=== PATIENT | female | born 1985 | race Caucasian/White ===

== ENCOUNTER 2018-01-08 21:02 | Inpatient (IN) | payer OTHER ==
[~2018-01-08] VITALS: Ht 170.2 cm; Wt 150.0 kg
[2018-01-08 21:05] VITALS: O2SAT 100
[2018-01-08] MEDS ORDERED: CLINDAMYCIN 600 MG/NS PREMIX 50 ML IV ONE (21:11)
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
[2018-01-08 21:37] LABS: AUTOMATED NEUTROPHIL # 9.5 TH/MM3 (1.8-7.7); BASOPHIL # 0.1 TH/MM3 (0-0.2); BASOPHIL % 0.9 % (0.0-2.0); EOSINOPHIL # 0.1 TH/MM3 (0-0.4); HEMATOCRIT 42.6 % (35.0-46.0); HEMOGLOBIN 13.8 GM/DL (11.6-15.3); LYMPH % 32.7 % (9.0-44.0); MEAN CELL VOLUME 80.1 FL (80.0-100.0); MEAN CORPUSCULAR HGB CONC 32.5 % (32.0-36.0); MEAN PLATELET VOLUME 7.4 FL (7.0-11.0); MONO % 3.7 % (0.0-8.0); MONOCYTE # 0.6 TH/MM3 (0-0.9); NEUT % 61.7 % (16.0-70.0); PLATELET COUNT 424 TH/MM3 (150-450); RED BLOOD COUNT 5.32 MIL/MM3 (4.00-5.30); WHITE BLOOD COUNT 15.3 TH/MM3 (4.0-11.0)
[2018-01-08] MEDS ORDERED: ceFAZolin 2 GM/NS PREMIX 100 ML IV STA (21:38)
[2018-01-08] MEDS ORDERED: DIPHTH/TETANUS/ACEL PERTUSSIS (BOOSTER) 0.5 ML VIAL/PFS IM ONE (21:38)
[2018-01-08] MEDS ORDERED: SODIUM CHLOR 0.9% 1000 ML INJ 1,000 ML IV SCH (21:45)
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
[2018-01-08] MEDS ORDERED: IOHEXOL 350 MG/ML 10 ML VIAL (for RAD DIAG) IVCONTRAST ONE (21:51)
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
[2018-01-08 21:56] LABS: PROTHROMBIN TIME - PATIENT 10.6 SEC (9.8-11.6)
[2018-01-08] MEDS ORDERED: LIDOCAINE 1%/EPINEPHrine 1:100,000 SOLN 20 ML VIAL INFIL ONE (22:00)
[2018-01-08] MEDS ORDERED: LIDOCAINE 1%/EPINEPHrine 1:100,000 SOLN 50 ML VIAL INFIL ONE (22:00)
[2018-01-08] MEDS ORDERED: MORPHINE SULFATE 4 MG/ML INJ IV PUSH ONE (22:00)
[2018-01-08] MEDS ORDERED: ONDANSETRON ODT 4 MG TAB PO ONE (22:00)
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
[2018-01-08 22:12] VITALS: BP 133/64; PULSE 94; RESP 18; O2SAT 99
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
[2018-01-08] MEDS ORDERED: SODIUM CHLORIDE 0.9% FLUSH 10 ML FLUSH IV FLUSH PRN (22:45)
[2018-01-08] MEDS ORDERED: HYDROmorphone HCL PF 1 MG/ML VIAL IVP PRN (22:45)
[2018-01-08] MEDS ORDERED: ONDANSETRON HCL 4 MG/2 ML VIAL IV PUSH PRN (22:45)
[2018-01-08] MEDS ORDERED: ACETAMINOPHEN/HYDROcodone 325 MG/5 MG TAB PO PRN ×2 (22:45)
[2018-01-08] MEDS ORDERED: ENALAPRILAT 1.25 MG/ML VIAL IV PUSH PRN (22:45)
--- NOTE | 2018-01-08 22:49 | PD ---
Data Data Last Documented VS Vital Signs Date Time Temp Pulse Resp B/P (MAP) Pulse Ox O2 Delivery O2 Flow Rate FiO2 01/08/18 22:15 99 Nasal Cannula 2.00 01/08/18 22:12 94 18 133/64 (87) Orders Orders I-Stat Profile (01/08/18 21:06) Complete Blood Count With Diff (01/08/18 21:06) Prothrombin Time / Inr (Pt) (01/08/18 21:06) Act Partial Throm Time (Ptt) (01/08/18 21:06) Type And Screen (01/08/18 21:06) Fibrinogen (01/08/18 21:06) Beta Hcg (Quant/Titer) (01/08/18 21:06) Red Blood Cells (Rbc) (01/08/18 21:06) Urinalysis - C+S If Indicated (01/08/18 21:06) Drug Screen, Random Urine (01/08/18 21:06) Chest, Single Ap (01/08/18 21:06) Pelvis, Ap Only (Routine) (01/08/18 21:06) Ct Brain W/O Iv Contrast(Rout) (01/08/18 21:06) Ct Cerv Spine W/O Contrast (01/08/18 21:06) Ct Abd/Pel W Iv Contrast(Rout) (01/08/18 21:06) Ct Thorax/ Chest W Iv Contrast (01/08/18 21:06) Ct Facial Bones W/O Iv Cont (01/08/18 21:06) Arterial Blood Gas (Abg) (01/08/18 21:06) Iv Access Insert/Monitor (01/08/18 21:06) Ecg Monitoring (01/08/18 21:06) Oximetry (01/08/18 21:06) Oxygen Administration (01/08/18 21:06) Elbow, Limited (Ap&Lat) (01/08/18 ) Ed Poc Ultrasound (01/08/18 ) Clindamycin 600 Mg/Ns Premix (Cleocin 60 (01/08/18 21:11) Ct Thor Spine W Iv Contrast (01/08/18 ) Ct Lumb Spine W Iv Contrast (01/08/18 ) Cefazolin 2 Gm Premix (Ancef 2 Gm Premix (01/08/18 21:38) Evfi-Tsg-Ayiclr (Booster) Inj (Boostrix (01/08/18 21:38) Sodium Chlor 0.9% 1000 Ml Inj (Ns 1000 M (01/08/18 21:45) Lidocai-Epi 1%-1:100,000 Inj (Xylocaine- (01/08/18 22:00) Lidocai-Epi 1%-1:100,000 Inj (Xylocaine- (01/08/18 22:00) Iohexol 350 Inj (Omnipaque 350 Inj) (01/08/18 21:51) Morphine Inj (Morphine Inj) (01/08/18 22:00) Ondansetron Odt (Zofran Odt) (01/08/18 22:00) Knee, Complete (4vws) (01/08/18 22:11) Admit Order (Ed Use Only) (01/08/18 22:27) Labs Laboratory Tests Test 01/08/18 21:15 White Blood Count 15.3 TH/MM3 Red Blood Count 5.32 MIL/MM3 Hemoglobin 13.8 GM/DL Bedside Hemoglobin 13.9 G/DL Hematocrit 42.6 % Bedside Hematocrit 41.0 % Mean Corpuscular Volume 80.1 FL Mean Corpuscular Hemoglobin 26.0 PG Mean Corpuscular Hemoglobin Concent 32.5 % Red Cell Distribution Width 15.0 % Platelet Count 424 TH/MM3 Mean Platelet Volume 7.4 FL Neutrophils (%) (Auto) 61.7 % Lymphocytes (%) (Auto) 32.7 % Monocytes (%) (Auto) 3.7 % Eosinophils (%) (Auto) 1.0 % Basophils (%) (Auto) 0.9 % Neutrophils # (Auto) 9.5 TH/MM3 Lymphocytes # (Auto) 5.0 TH/MM3 Monocytes # (Auto) 0.6 TH/MM3 Eosinophils # (Auto) 0.1 TH/MM3 Basophils # (Auto) 0.1 TH/MM3 CBC Comment DIFF FINAL Differential Comment Prothrombin Time 10.6 SEC Prothromb Time International Ratio 1.0 RATIO Activated Partial Thromboplast Time 21.8 SEC Fibrinogen 261 mg/dL Bedside Sodium 141 MMOL/L Bedside Potassium 3.6 MMOL/L Bedside Chloride 106 MMOL/L Bedside Blood Urea Nitrogen 10 MG/DL Bedside Creatinine 0.5 MG/DL Bedside Glucose 296 MG/DL Human Chorionic Gonadotropin, Quant LESS THAN 1 MIU/ML MDM Medical Record Reviewed: Yes Supervised Visit with ALMAZ: No Procedures Procedure Narrative LACERATION LOCATION: Right elbow LENGTH: 3-4 cm tissue avulsion NUMBER OF STITCHES/ARCELIA: 7 REPAIR: The area of the laceration was prepped with Betadine and sterilely draped. The laceration was infiltrated with 1% lidocaine with epinephrine. The wound was copiously irrigated and explored without evidence of foreign body , tendon injury or neurovascular injury. The wound was closed using 4-0 Prolene simple interrupted. This was a single layer repair. A sterile dressing was applied. The patient was advised to keep the dressing clean and dry. Patient tolerated the procedure well. LACERATION LOCATION: Right lateral ankle LENGTH: 3-4 cm NUMBER OF STITCHES/ARCELIA:6 REPAIR: The area of the laceration was prepped with Betadine and sterilely draped. The laceration was infiltrated with 1% lidocaine with epinephrine. The wound was copiously irrigated and explored without evidence of foreign body , tendon injury or neurovascular injury. The wound was closed using 4-0 Prolene simple interrupted. This was a single layer repair. A sterile dressing was applied. The patient was advised to keep the dressing clean and dry. Patient tolerated the procedure well. Shiv Guzman January 08, 2018 22:49
[2018-01-08 22:54] VITALS: BP 115/64; PULSE 96; RESP 18; O2SAT 98
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
[2018-01-08] MEDS: SODIUM CHLOR 0.9% 1000 ML INJ 1,000 ML IV SCH (23:54)
[2018-01-08] MEDS: PANTOPRAZOLE SODIUM 40 MG VIAL IVP SCH (23:54)
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
[2018-01-09] MEDS ORDERED: ACETAMINOPHEN 325 MG TAB PO PRN (04:00)
[2018-01-09 04:52] VITALS: BP 112/66; PULSE 103; RESP 20; TEMP 98.3; O2SAT 98
[2018-01-09] MEDS: SODIUM CHLOR 0.9% 1000 ML INJ 1,000 ML IV SCH ×3 (05:40→18:04)
[2018-01-09 05:55] LABS: AUTOMATED NEUTROPHIL # 7.1 TH/MM3 (1.8-7.7); BASOPHIL % 0.2 % (0.0-2.0); HEMATOCRIT 41.1 % (35.0-46.0); HEMOGLOBIN 13.5 GM/DL (11.6-15.3); LYMPHOCYTE # 0.5 TH/MM3 (1.0-4.8); MEAN CELL VOLUME 80.1 FL (80.0-100.0); MEAN CORPUSCULAR HEMOGLOBIN 26.4 PG (27.0-34.0); MEAN PLATELET VOLUME 7.7 FL (7.0-11.0); MONO % 8.3 % (0.0-8.0); MONOCYTE # 0.7 TH/MM3 (0-0.9); NEUT % 85.5 % (16.0-70.0); PLATELET COUNT 270 TH/MM3 (150-450); RED BLOOD COUNT 5.12 MIL/MM3 (4.00-5.30); WHITE BLOOD COUNT 8.4 TH/MM3 (4.0-11.0)
[2018-01-09 06:34] LABS: ALBUMIN 3.3 GM/DL (3.4-5.0); ALT (GPT) 832 U/L (10-53); AST (GOT) 871 U/L (15-37); BICARBONATE 22.7 MEQ/L (21.0-32.0); BLOOD UREA NITROGEN 10 MG/DL (7-18); CALCIUM 8.3 MG/DL (8.5-10.1); CHLORIDE 105 MEQ/L (98-107); CREATININE 0.83 MG/DL (0.50-1.00); GLOMERULAR FILTRATION RATE 59 ML/MIN (>89); GLUCOSE,RANDOM 336 MG/DL (74-106); SODIUM (NA) 139 MEQ/L (136-145)
[2018-01-09 06:36] LABS: ALKALINE PHOSPHATASE 79 U/L (45-117); TOTAL BILIRUBIN ADULT 0.5 MG/DL (0.2-1.0); TOTAL PROTEIN 7.1 GM/DL (6.4-8.2)
[2018-01-09 08:04] VITALS: BP 119/65; PULSE 107; RESP 17; TEMP 99; O2SAT 93
[2018-01-09] MEDS: DOCUSATE SODIUM 50 MG/SENNA 8.6 MG TAB PO SCH ×2 (08:44→20:42)
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
[2018-01-09] MEDS ORDERED: HYDROmorphone HCL PF 2 MG/ML VIAL IV PUSH PRN (10:45)
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
[2018-01-09] MEDS: ACETAMINOPHEN 1000 MG/100 ML 100 ML IV PRN (12:51)
[2018-01-09] MEDS: BACITRACIN TOP OINT 15 GM TUBE TOPICAL SCH ×2 (14:00→20:44)
[2018-01-09] MEDS ORDERED: GLUCAGON 1 MG/ML VIAL OTHER PRN (14:15)
[2018-01-09] MEDS ORDERED: DEXTROSE 50% IN WATER 50 ML VIAL(D50) IV PUSH PRN (14:15)
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
[2018-01-09 16:16] VITALS: BP 138/69; PULSE 91; RESP 18; TEMP 99.5; O2SAT 93
[2018-01-09] MEDS: INSULIN ASPART SUPPLEMENTAL SCALE SQ SCH ×2 (17:25→20:43)
[2018-01-09 20:00] VITALS: BP 151/71; PULSE 91; RESP 18; TEMP 98.2; O2SAT 96
[2018-01-09] MEDS: PANTOPRAZOLE SODIUM 40 MG VIAL IVP SCH (23:22)
[2018-01-10] VITALS (7 sets, daily range): BP systolic 122–146; BP diastolic 55–78; PULSE 95–104; RESP 18–20; TEMP 97.8–99.8; O2SAT 94–97
[2018-01-10] MEDS: SODIUM CHLOR 0.9% 1000 ML INJ 1,000 ML IV SCH (01:40)
[2018-01-10] MEDS: ACETAMINOPHEN 1000 MG/100 ML 100 ML IV PRN (03:46)
[2018-01-10] MEDS ORDERED: fentaNYL 50 MCG/HR PATCH T-DERMAL SCH (06:00)
[2018-01-10] MEDS: INSULIN ASPART SUPPLEMENTAL SCALE SQ SCH ×4 (08:00→21:21)
[2018-01-10] MEDS: DOCUSATE SODIUM 50 MG/SENNA 8.6 MG TAB PO SCH ×2 (09:20→21:21)
[2018-01-10 09:24] LABS: AUTOMATED NEUTROPHIL # 5.4 TH/MM3 (1.8-7.7); BASOPHIL % 0.6 % (0.0-2.0); EOSINOPHIL # 0.1 TH/MM3 (0-0.4); EOSINOPHIL % 1.7 % (0.0-4.0); HEMATOCRIT 38.2 % (35.0-46.0); HEMOGLOBIN 12.6 GM/DL (11.6-15.3); MEAN CELL VOLUME 79.4 FL (80.0-100.0); MEAN CORPUSCULAR HEMOGLOBIN 26.2 PG (27.0-34.0); MEAN CORPUSCULAR HGB CONC 32.9 % (32.0-36.0); MEAN PLATELET VOLUME 7.3 FL (7.0-11.0); MONO % 10.4 % (0.0-8.0); MONOCYTE # 0.8 TH/MM3 (0-0.9); NEUT % 74.3 % (16.0-70.0); PLATELET COUNT 239 TH/MM3 (150-450); RED BLOOD COUNT 4.81 MIL/MM3 (4.00-5.30); RED CELL DISTRIBUTION WIDTH 15.4 % (11.6-17.2); WHITE BLOOD COUNT 7.3 TH/MM3 (4.0-11.0)
[2018-01-10 10:03] LABS: CALCIUM 8.4 MG/DL (8.5-10.1); CREATININE 0.52 MG/DL (0.50-1.00)
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
[2018-01-10 11:09] LABS: ALBUMIN 3.2 GM/DL (3.4-5.0); AST (GOT) 186 U/L (15-37); BICARBONATE 22.3 MEQ/L (21.0-32.0); BLOOD UREA NITROGEN 6 MG/DL (7-18); CALCIUM 8.3 MG/DL (8.5-10.1); CREATININE 0.54 MG/DL (0.50-1.00); GLOMERULAR FILTRATION RATE 132 ML/MIN (>89); GLUCOSE,RANDOM 256 MG/DL (74-106)
[2018-01-10 11:10] LABS: ALT (GPT) 459 U/L (10-53); PHOSPHORUS 2.4 MG/DL (2.5-4.9)
[2018-01-10 11:42] LABS: CHLORIDE 104 MEQ/L (98-107); SODIUM (NA) 138 MEQ/L (136-145)
[2018-01-10 11:51] LABS: ALKALINE PHOSPHATASE 70 U/L (45-117); FREE T4 1.21 NG/DL (0.76-1.46); TOTAL BILIRUBIN ADULT 1.1 MG/DL (0.2-1.0); TOTAL PROTEIN 7.1 GM/DL (6.4-8.2)
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
[2018-01-10] MEDS: ONDANSETRON ODT 4 MG TAB PO PRN ×2 (15:19→22:56)
[2018-01-10 15:50] LABS: HEMOGLOBIN A1C 10.1 % (4.3-6.0)
[2018-01-10] MEDS: metFORMIN HCL 500 MG TAB PO SCH (17:49)
[2018-01-10] MEDS: BACITRACIN TOP OINT 15 GM TUBE TOPICAL SCH ×2 (18:01→21:23)
[2018-01-10] MEDS: PANTOPRAZOLE SODIUM 40 MG VIAL IVP SCH (22:56)
[2018-01-11] VITALS: BP 145/76; PULSE 83; RESP 21; TEMP 98.8; O2SAT 96
[2018-01-11] MEDS: ACETAMINOPHEN 1000 MG/100 ML 100 ML IV PRN (05:15)
[2018-01-11] MEDS: ONDANSETRON ODT 4 MG TAB PO PRN ×2 (06:02→13:02)
[2018-01-11 06:26] LABS: AUTOMATED NEUTROPHIL # 6.2 TH/MM3 (1.8-7.7); BASOPHIL % 0.6 % (0.0-2.0); EOSINOPHIL # 0.1 TH/MM3 (0-0.4); EOSINOPHIL % 1.6 % (0.0-4.0); HEMATOCRIT 35.8 % (35.0-46.0); HEMOGLOBIN 11.8 GM/DL (11.6-15.3); LYMPH % 14.9 % (9.0-44.0); LYMPHOCYTE # 1.2 TH/MM3 (1.0-4.8); MEAN CELL VOLUME 79.9 FL (80.0-100.0); MEAN CORPUSCULAR HEMOGLOBIN 26.3 PG (27.0-34.0); MEAN CORPUSCULAR HGB CONC 32.9 % (32.0-36.0); MEAN PLATELET VOLUME 7.3 FL (7.0-11.0); MONO % 8.4 % (0.0-8.0); MONOCYTE # 0.7 TH/MM3 (0-0.9); NEUT % 74.5 % (16.0-70.0); PLATELET COUNT 216 TH/MM3 (150-450); RED BLOOD COUNT 4.48 MIL/MM3 (4.00-5.30); RED CELL DISTRIBUTION WIDTH 15.1 % (11.6-17.2); WHITE BLOOD COUNT 8.3 TH/MM3 (4.0-11.0)
[2018-01-11 06:43] LABS: ALBUMIN 2.9 GM/DL (3.4-5.0); ALT (GPT) 308 U/L (10-53); AST (GOT) 69 U/L (15-37); BICARBONATE 26.3 MEQ/L (21.0-32.0); BLOOD UREA NITROGEN 7 MG/DL (7-18); CALCIUM 8.1 MG/DL (8.5-10.1); CHLORIDE 101 MEQ/L (98-107); CREATININE 0.59 MG/DL (0.50-1.00); GLOMERULAR FILTRATION RATE 119 ML/MIN (>89); GLUCOSE,RANDOM 206 MG/DL (74-106); MAGNESIUM 1.8 MG/DL (1.5-2.5); PHOSPHORUS 2.1 MG/DL (2.5-4.9); SODIUM (NA) 136 MEQ/L (136-145)
[2018-01-11 06:46] LABS: ALKALINE PHOSPHATASE 73 U/L (45-117); TOTAL BILIRUBIN ADULT 1.2 MG/DL (0.2-1.0); TOTAL PROTEIN 6.9 GM/DL (6.4-8.2)
[2018-01-11 08:00] VITALS: BP 127/62; PULSE 82; RESP 20; TEMP 97.8; O2SAT 93
[2018-01-11] MEDS ORDERED: INSULIN HUMAN NPH 1,000 UNITS/10 ML VIAL SQ SCH (08:00)
[2018-01-11] MEDS: INSULIN ASPART SUPPLEMENTAL SCALE SQ SCH ×2 (08:00→12:00)
[2018-01-11] MEDS: DOCUSATE SODIUM 50 MG/SENNA 8.6 MG TAB PO SCH (09:00)
[2018-01-11] MEDS: metFORMIN HCL 500 MG TAB PO SCH (10:13)
[2018-01-11] MEDS: BACITRACIN TOP OINT 15 GM TUBE TOPICAL SCH (10:15)
[2018-01-11] MEDS ORDERED: FENT50T T-DERMAL (11:03)
[2018-01-11] MEDS ORDERED: ONDA4TAB7 PO (11:03)
[2018-01-11] MEDS ORDERED: IBUP-1129 PO (11:03)
[2018-01-11] MEDS ORDERED: NOVONP2 SQ (11:56)
[2018-01-11] MEDS ORDERED: METF500 PO (11:56)
[2018-01-11 12:00] VITALS: BP 124/71; PULSE 94; RESP 20; TEMP 98; O2SAT 97
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
[2018-01-11 16:00] VITALS: BP 139/68; PULSE 99; RESP 20; TEMP 97.5; O2SAT 93
[2018-01-13] MEDS ORDERED: REMOVE OLD DURAGESIC (FENTANYL) PATCH T-DERMAL SCH (06:00)
== END 2018-01-11 16:28 | disposition home or self-care (01) | DRG 89 ==
LOC: NEPI 21:02 → EDBD 22:29 → NEDA 22:29 → N06B 01-09 00:10
PROVIDERS: ADMIT Surgery; ATTEND Surgery
PROC: 0HQ2XZZ Repair Right Ear Skin, External Approach (ICD-10-PCS; principal; 2018-01-08)
PROC: 0HQ1XZZ Repair Face Skin, External Approach (ICD-10-PCS; 2018-01-08)
PROC: 0HQKXZZ Repair Right Lower Leg Skin, External Approach (ICD-10-PCS; 2018-01-08)
PROC: 0HQBXZZ Repair Right Upper Arm Skin, External Approach (ICD-10-PCS; 2018-01-08)
DX: S06.0X9A Concussion with loss of consciousness of unspecified duration, initial encounter (principal); S36.112A Contusion of liver, initial encounter; Z68.43 Body mass index [BMI] 50.0-59.9, adult; E11.65 Type 2 diabetes mellitus with hyperglycemia; S82.831A Other fracture of upper and lower end of right fibula, initial encounter for closed fracture; S01.111A Laceration without foreign body of right eyelid and periocular area, initial encounter; S01.411A Laceration without foreign body of right cheek and temporomandibular area, initial encounter; S91.011A Laceration without foreign body, right ankle, initial encounter; S30.1XXA Contusion of abdominal wall, initial encounter; S51.011A Laceration without foreign body of right elbow, initial encounter; S01.311A Laceration without foreign body of right ear, initial encounter; M54.9 Dorsalgia, unspecified; M25.561 Pain in right knee; M79.642 Pain in left hand; E66.01 Morbid (severe) obesity due to excess calories; R07.9 Chest pain, unspecified; E66.9 Obesity, unspecified; Y92.488 Other paved roadways as the place of occurrence of the external cause; V47.0XXA Car driver injured in collision with fixed or stationary object in nontraffic accident, initial encounter; Z83.3 Family history of diabetes mellitus; Z82.49 Family history of ischemic heart disease and other diseases of the circulatory system; Z23 Encounter for immunization
CPT/HCPCS: 12004; 12015; 70450; 70486; 71045; 71260; 72125; 72129; 72132; 72170; 73070; 73130; 73560; 73590; 73610; 74177; 80048; 80053; 82948; 83036; 83735; 84100; 84439; 84443; 84702; 85025; 85384; 85610; 85730; 86850; 86900; 86901; 86920; 90471; 90715; 94150; 96361; 96374; C9113; J0131; J1815; J2270; J2405; J7030; L2114; Q9967

== ENCOUNTER 2018-01-14 12:37 | Emergency (ER) | payer OTHER ==
[~2018-01-14] VITALS: Ht 165.1 cm; Wt 145.0 kg
[~2018-01-14 12:37] MED LIST: FENT50T T-DERMAL; IBUP-1129 PO; METF500 PO; NOVONP2 SQ; ONDA4TAB7 PO
[2018-01-14 12:56] VITALS: BP 124/65; PULSE 95; RESP 20; TEMP 98.5; O2SAT 98
[2018-01-14] MEDS ORDERED: PRIL20TA2 PO (13:14)
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
[2018-01-14 13:55] LABS: AUTOMATED NEUTROPHIL # 4.8 TH/MM3 (1.8-7.7); BASOPHIL # 0.1 TH/MM3 (0-0.2); BASOPHIL % 0.8 % (0.0-2.0); EOSINOPHIL # 0.2 TH/MM3 (0-0.4); EOSINOPHIL % 2.7 % (0.0-4.0); HEMATOCRIT 36.2 % (35.0-46.0); HEMOGLOBIN 12.2 GM/DL (11.6-15.3); LYMPH % 19.1 % (9.0-44.0); LYMPHOCYTE # 1.3 TH/MM3 (1.0-4.8); MEAN CORPUSCULAR HEMOGLOBIN 26.6 PG (27.0-34.0); MEAN CORPUSCULAR HGB CONC 33.7 % (32.0-36.0); MEAN PLATELET VOLUME 7.2 FL (7.0-11.0); MONO % 8.5 % (0.0-8.0); MONOCYTE # 0.6 TH/MM3 (0-0.9); NEUT % 68.9 % (16.0-70.0); PLATELET COUNT 305 TH/MM3 (150-450); RED BLOOD COUNT 4.58 MIL/MM3 (4.00-5.30); RED CELL DISTRIBUTION WIDTH 14.9 % (11.6-17.2)
[2018-01-14 14:09] LABS: BICARBONATE 28.9 MEQ/L (21.0-32.0); CALCIUM 8.3 MG/DL (8.5-10.1); CREATININE 0.63 MG/DL (0.50-1.00)
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
== END 2018-01-14 14:32 | disposition home or self-care (01) ==
LOC: NEPD 12:37
DX: M79.604 Pain in right leg (principal)
CPT/HCPCS: 80048; 85025; 93971; 99284